=== PATIENT | male | born 1975 ===

== ENCOUNTER 2023-05-09 12:10 | Emergency (ER) | payer OTHER, SELFPAY ==
[2023-05-09] VITALS (13 sets, daily range): BP systolic 87–151; BP diastolic 66–100; PULSE 62–79; RESP 14–30; TEMP 36.6; O2SAT 93–98; BMI 37.7
--- NOTE | 2023-05-09 12:27 | ECG_ITS ---
[facility] Test Date: 2023-05-09 Pat Name: SILKE COLUNGA Department: Room: - Gender: Male Machine Inspector: : 1975 Requested By: Order Number: [id number] Reading MD: STEVENSON ALVARADO Measurements Intervals [place] Rate: 62 P: 48 [place]: 136 QRS: 75 QRSD: 90 T: 27 QT: 410 QTc: 415 Interpretive Statements 1100 Sinus rhythm 9110 normal ECG No previous ECG available for comparison Electronically Signed On 05-09-2023 17:01:22 EST by STEVENSON ALVARADO
--- NOTE | 2023-05-09 12:27 | XR_ITS ---
The [address] [address] Patient Name: SILKE COLUNGA MRN: [id number] date: 1975 Sex: M Assigned Patient Location: ER Current Patient Location: ER Accession/Order Number: [id number] Exam Date: 05/09/2023 12:38 Report Date: 05/09/2023 13:40 At the request of: ANGEL RIVERA Procedure: XR chest 1V EXAMINATION: XR chest 1V, 05/09/2023 12:38 PM EST HISTORY: CP COMPARISON: 12/30/2010 TECHNIQUE: AP portable view of the chest performed. FINDINGS: Medical devices: None. Cardiomediastinal silhouette is within normal limits. The lungs are clear. No large pleural effusion, or pneumothorax. XR/XR chest 1V IMPRESSION: 1. No acute cardiopulmonary abnormality. Electronically authenticated by: STEVE DONAHUE Date: 05/09/2023 13:40
--- NOTE | 2023-05-09 12:27 | ED_ITS ---
HPI - Chest Pain General Chief Complaint: Chest Pain Stated Complaint: CHEST PAIN Time Seen by Provider: 05/09/23 12:22 Source: patient Mode of arrival: walk-in Limitations: no limitations History of Present Illness HPI narrative: 48-year-old male presents for left-sided chest pain. He states it feels like a soreness and it started yesterday. Three days ago he started doing pushups which is unusual for him. There was no direct injury such as a fall. It doesn't seem to radiate and the patient doesn't have shortness of breath or back pain. Related Data Home Medications Medication Instructions Recorded Confirmed No Known Home Medications 05/09/23 05/09/23 Allergies Allergy/AdvReac Type Severity Reaction Status Date / Time No Known Drug Allergies Allergy Verified 05/09/23 12:20 Review of Systems ROS Narrative A ten point review of systems is negative except as noted above. PFSH PFS Social History Smoking status: Never smoker Exam Narrative Exam Narrative: Nurses note and vital signs reviewed and patient is not hypoxic. General: The patient appears well and in no apparent distress. Patient is resting comfortably on cart. Skin: Warm, dry, no pallor noted. There is no rash noted. Head: Normocephalic, atraumatic Eye: Normal conjunctiva, no drainage Ears, Nose, Mouth, and Throat: oral mucosa is moist. Nares patent. Cardiovascular: Regular Rate and Rhythm; he has some mild tenderness in the left upper chest which seems to reproduce his pain. Respiratory: Patient is in no distress, no accessory muscle use, lungs are clear to auscultation, no wheezing, rales or rhonchi Back: non-tender GI: soft and nontender Musculoskeletal: The patient has no evidence of calf tenderness, no pitting edema, symmetrical pulses noted bilaterally Neurological: A&O, normal speech Psychiatric: Cooperative Constitutional Vital Signs, click to edit/add: Last Vital Signs Temp 98 F 05/09/23 12:17 Pulse 71 05/09/23 13:30 Resp 20 05/09/23 13:30 BP 130/77 05/09/23 13:30 Pulse Ox 96 05/09/23 13:30 O2 Del Method Room Air 05/09/23 12:17 Course Vital Signs Vital signs: Vital Signs Temperature 98 F 05/09/23 12:17 Pulse Rate 70 05/09/23 12:17 Respiratory Rate 20 05/09/23 12:17 Blood Pressure 111/80 05/09/23 12:17 Pulse Oximetry 97 05/09/23 12:17 Oxygen Delivery Method Room Air 05/09/23 12:17 Temperature 98 F 05/09/23 12:17 Pulse Rate 71 05/09/23 13:30 Respiratory Rate 20 05/09/23 13:30 Blood Pressure 130/77 05/09/23 13:30 Pulse Oximetry 96 05/09/23 13:30 Oxygen Delivery Method Room Air 05/09/23 12:17 MDM - Chest Pain MDM Narrative Medical decision making narrative: His workup is negative. His pain is reproducible and he had just started doing pushups. I suspect that this is muscular pain. Treatment diagnosis and follow-up were discussed with the patient. Differential Diagnosis Differential diagnosis: Likely fracture of rib, pneumothorax, atypical chest pain, st elevation myocardial infarction, costochondritis and chest pain Lab Data Attestation: I reviewed the patient's lab results. Labs: Lab Results 05/09/23 Range/Units 12:39 WBC 6.6 (4.0-11.0) 10^3/uL RBC 5.38 (4.70-6.10) 10^6/uL Hgb 14.9 (14.0-18.0) g/dL Hct 45.2 (42.0-54.0) % MCV 84.0 (80.0-94.0) fL MCH 27.7 (25.9-34.0) pg MCHC 33.0 (29.9-35.2) g/dL RDW 13.4 (11.0-15.0) % Plt Count 280 (150-450) 10^3/uL MPV 9.4 L (9.5-13.5) fL Neut % (Auto) 45.4 (43.0-75.0) % Lymph % (Auto) 40.9 (20.5-60.0) % [place] % (Auto) 9.5 (1.7-12.0) % Eos % (Auto) 3.4 (0.9-7.0) % Baso % (Auto) 0.5 (0.2-2.0) % Neut # (Auto) 3.0 (1.4-6.5) 10^3/uL Lymph # (Auto) 2.7 (1.2-3.8) 10^3/uL [place] # (Auto) 0.6 (0.3-0.8) 10^3/uL Eos # (Auto) 0.2 (0.0-0.7) 10^3/uL Baso # (Auto) 0.0 (0.0-0.1) 10^3/uL Abs Immat Gran (auto) 0.02 (0.00-0.03) 10^3/uL Imm/Tot Granulo (auto) 0.3 (0.0-0.5) % Sodium 135 L (136-145) mmol/L Potassium 3.8 (3.5-5.1) mmol/L Chloride 102 (98-107) mmol/L Carbon Dioxide 26.5 (21.0-32.0) mmol/L Anion Gap 10.3 BUN 18.0 (7.0-18.0) mg/dL Creatinine 0.95 (0.70-1.30) mg/dL Est GFR ( Amer) >60 (>=60) Est GFR (Non-Af Amer) >60 (>=60) BUN/Creatinine Ratio 18.9 Glucose 101 (74-106) mg/dL Calcium 8.5 (8.5-10.1) mg/dL Troponin I High Sens 4.5 (4.0-76.1) pg/mL Imaging Data Chest x-ray: Radiologist's impression: no acute findings ECG Data Attestation: I personally reviewed and interpreted this ECG as follows: (EKG on my interpretation shows normal sinus rhythm with no acute changes and a rate of 61.) Heart Score History: Slightly/Non-Suspicious ECG: Normal Age: >45-<65 years Risk Factors: No Risk Factors Troponin: <Normal Limit Total Heart Score Recommendations & Risks:: 1 Discharge Plan Discharge Chief Complaint: Chest Pain Clinical Impression: Chest wall pain Patient Disposition: Home, Self-Care Time of Disposition Decision: 14:08 Condition: Good Mode of Transportation: Private Vehicle Prescriptions / Home Meds: No Action No Known Home Medications Instructions: Chest Wall Pain (ED) Stand Alone Forms: Portal Instructions Referrals: ROSEMARIE DOUGHERTY [Primary Care Provider] - 1 week
[2023-05-09 12:56] LABS: Basophils Percent Auto 0.5 % (0.2-2.0); Eosinophils Absolute Auto 0.2 10^3/uL (0.0-0.7); Eosinophils Percent Auto 3.4 % (0.9-7.0); Hematocrit 45.2 % (42.0-54.0); Hemoglobin 14.9 g/dL (14.0-18.0); Immature Granulocytes Abs Auto 0.02 10^3/uL (0.00-0.03); Immature Granulocytes Pct Auto 0.3 % (0.0-0.5); Lymphocytes Absolute Auto 2.7 10^3/uL (1.2-3.8); Lymphocytes Percent Auto 40.9 % (20.5-60.0); Mean Corpuscular Hemoglobin 27.7 pg (25.9-34.0); Mean Platelet Volume 9.4 fL (9.5-13.5); Monocytes Absolute Auto 0.6 10^3/uL (0.3-0.8); Monocytes Percent Auto 9.5 % (1.7-12.0); Neutrophils Percent Auto 45.4 % (43.0-75.0); Platelet Count 280 10^3/uL (150-450); Red Blood Count 5.38 10^6/uL (4.70-6.10); Red Cell Distribution Width 13.4 % (11.0-15.0); White Blood Count 6.6 10^3/uL (4.0-11.0)
[2023-05-09 13:14] LABS: Anion Gap 10.3; BUN Creatinine Ratio 18.9; Calcium 8.5 mg/dL (8.5-10.1); Carbon Dioxide 26.5 mmol/L (21.0-32.0); Chloride 102 mmol/L (98-107); Estimated GFR (African America >60 (>=60); Estimated GFR (Non-African Ame >60 (>=60); Glucose 101 mg/dL (74-106); Potassium 3.8 mmol/L (3.5-5.1); Sodium 135 mmol/L (136-145); Troponin I High Sensitivity 4.5 pg/mL (4.0-76.1)
== END 2023-05-09 14:26 | disposition home or self-care (01) ==
PROVIDERS: Emergency Provider Emergency Medicine; PCP Internal Medicine
DX: R07.89 Other chest pain (principal)
CPT/HCPCS: 36415; 71045; 80048; 84484; 85025; 93005; 99285